=== PATIENT | male | born 1985 | race African-American/Black ===

== ENCOUNTER 2021-01-31 14:03 | Emergency (ER) | payer OTHER ==
[2021-01-31 14:10] VITALS: BP 125/78; PULSE 77; TEMP 98.4; BMI 20.2
== END 2021-01-31 14:47 | disposition home or self-care (01) ==
LOC: JERFT 14:03
DX: S60.351A Superficial foreign body of right thumb, initial encounter (principal)
CPT/HCPCS: 99282-25

== ENCOUNTER 2022-07-24 14:14 | Emergency (ER) | payer OTHER ==
[2022-07-24] MEDS ORDERED: MAG HYDROX/AL HYDROX/SIMETH 30 ML UNIT-DOSE CUP PO ONE (14:16)
[2022-07-24] MEDS ORDERED: LIDOCAINE VISCOUS 2% ORAL/TOP 15 ML UNIT-DOSE CUP MM ONE (14:17)
[2022-07-24] MEDS ORDERED: FAMOTIDINE 10 MG TABLET PO ONE (14:17)
[2022-07-24 14:27] VITALS: BP 146/83; PULSE 80; RESP 20; TEMP 98.2; BMI 20.2
[2022-07-24] MEDS ORDERED: FAMOTIDINE 20 MG TABLET ONE (15:01)
[2022-07-24] MEDS ORDERED: MAG HYDROX/AL HYDROX/SIMETH 30 ML UNIT-DOSE CUP ONE (15:01)
[2022-07-24] MEDS ORDERED: LIDOCAINE VISCOUS 2% ORAL/TOP 15 ML UNIT-DOSE CUP ONE (15:01)
[2022-07-24 16:16] LABS: HEMATOCRIT 39.1 % (35.4-49); HEMOGLOBIN 13.3 G/dL (11.7-16.9); MCH 28.9 pg (25.7-33.7); MCHC 33.9 g/dl (32.0-35.9); MEAN CELL VOLUME 85.4 fl (80-96); MEAN PLT VOLUME 7.5 fl (7.5-11.1); PLATELET COUNT 289.7 10^3/uL (134-434); RBC 4.58 10^6/uL (4.00-5.60); RDW 14.9 % (11.9-15.9); WHITE BLOOD COUNT 5.5 10^3/uL (4.0-10.8)
[2022-07-24 16:29] LABS: ALBUMIN 3.7 g/dl (3.4-5.0); BILIRUBIN,TOTAL 0.2 mg/dl (0.2-1); CALCIUM 8.9 mg/dl (8.5-10); CREATININE 1.1 mg/dl (0.55-1.3); TOT PROT 6.8 g/dl (6.4-8.2)
[2022-07-24 17:47] LABS: PLATELET ESTIMATE ADEQUATE
== END 2022-07-24 18:29 | disposition home or self-care (01) ==
LOC: FER 14:14
DX: K21.9 Gastro-esophageal reflux disease without esophagitis (principal)
CPT/HCPCS: 36415; 80053; 83690; 85027; 99283-25